=== PATIENT | male | born 1990 ===

== ENCOUNTER 2018-06-09 07:43 | Observation (INO) | payer OTHER ==
[2018-06-09] MEDS ORDERED: Racepinephrine 2.25% Inhal Soln 0.5 ML UD INH ONE (08:30)
[2018-06-09] MEDS ORDERED: Sodium Chloride 0.9% 1,000 ML IV ONE (08:31)
[2018-06-09] MEDS ORDERED: Clindamycin 600mg/50ml D5W 600 MG/50 ML VIAL IVPB STA (08:32)
--- NOTE | 2018-06-09 08:39 | C.PDOC ---
History Of Present Illness Patient presents to ED c/o throat pain and swelling x 4 days, muffled voice for the past 3 days. He states he has not been able to eat or drink for the pats 3 days, and has some SOB. Patient denies chest pain, palpitations, falls/ injuries. Time Seen by Provider: 06/09/18 08:22 Chief Complaint (Nursing): ENT Problem History Per: Patient History/Exam Limitations: clinical condition Onset/Duration Of Symptoms: Days (4) Current Symptoms Are (Timing): Still Present Severity: Severe Past Medical History Reviewed: Historical Data, Nursing Documentation, Vital Signs Vital Signs: Last Vital Signs Temp 100 F H 06/09/18 08:17 Pulse 106 H 06/09/18 08:17 Resp 18 06/09/18 08:17 BP 141/88 06/09/18 08:17 Pulse Ox 97 06/09/18 08:17 - Medical History PMH: No Chronic Diseases Surgical History: No Surg Hx Family History: States: No Known Family Hx - Social History Hx Alcohol Use: No Hx Substance Use: No - Immunization History Hx Tetanus Toxoid Vaccination: No Hx Influenza Vaccination: No Hx Pneumococcal Vaccination: No Review Of Systems Constitutional: Positive for: Fever ENT: Positive for: Throat Pain, Throat Swelling. Negative for: Nose Congestion Cardiovascular: Negative for: Chest Pain, Palpitations Respiratory: Positive for: Shortness of Breath. Negative for: Cough Gastrointestinal: Negative for: Nausea, Vomiting, Abdominal Pain, Diarrhea Skin: Negative for: Rash Physical Exam - Physical Exam Appears: Non-toxic, In Acute Distress (in moderate distress, (+) muffled voice) Eye(s): bilateral: Normal Inspection Nose: Normal Oral Mucosa: Moist Tongue: Normal Appearing, No Swelling Lips: Normal Appearing, No Swelling Throat: Erythema, No Exudate, No Drooling, Other (right sided peritonsillar abscess, uvula swollen and deviated to left, (+) mild trismus) Neck: Supple Cardiovascular: Rhythm Regular (tachycardic ) Respiratory: Normal Breath Sounds, No Rales, No Rhonchi, No Wheezing Gastrointestinal/Abdominal: Normal Exam, Bowel Sounds, Soft, No Tenderness Neurological/Psych: Oriented x3 ED Course And Treatment - Laboratory Results Result Diagrams: 06/09/18 08:30 06/09/18 08:30 O2 Sat by Pulse Oximetry: 97 (RA) Pulse Ox Interpretation: Normal Progress Note: Blood work, EKG, Xrays of chest, soft tissue neck ordered and reviewed. Patient given IV NS bolus, IV solumedrol, racemic epi nebulizer. 8:30am- Spoke with ENT Dr. Valadez, aware of patient with ride sided peritonsillar abscess and uvual swelling. Recommends steroids, IV clindamycin, will I&D patient in OR. 9:30am- Patient states he feels the same, no improvement. On exam, (+) swollen uvula and right sided peritonsillar swelling, (+) erthema and exudated. Patient s/p IV Solumedrol, IV Clindamycin, and racemic epi, no drooling or dyspnea. Will discuss with anesthesia for possible fiberoptic eval/visualization. 10:00am - Direct visualization of epiglottis and cords done by me using fiberoptic bronchoscope - epilottis normal appear and cords normal appearing. 10:10am - Dr. Valadez paged again, pending call back. 10:15AM- Dr. Valadez on his way to ER, will see patient. 10:45AM - Dr. Valadez in ED, plans to I&D abscess in ER. However patient has significant uvular swelling, will need admission/observation. Disposition - Disposition Forms: [employer] ([place])
[2018-06-09] MEDS ORDERED: Clindamycin 600mg/50ml NS 600 MG/50 ML BAG IVPB ONE (08:41)
[2018-06-09] MEDS ORDERED: Racepinephrine 2.25% Inhal Soln 0.5 ML UD ONE (08:41)
[2018-06-09] MEDS ORDERED: Sodium Chloride 0.9% 1,000 ML ONE (08:42)
[2018-06-09 09:02] LABS: BASO # 0.1 K/uL (0.0-0.2); BASO % 0.5 % (0.0-2.0); EOS # 0.2 K/uL (0.0-0.7); EOS % 1.6 % (0.0-4.0); HEMOGLOBIN 15.9 g/dL (12.0-18.0); LYMPH # 1.1 K/uL (1.0-4.3); LYMPH % 8.1 % (20.0-40.0); MEAN CELL VOLUME 91.9 fL (80.0-94.0); MEAN CORPUSCULAR HEMOGLOBIN 30.6 pg (27.0-31.0); MEAN CORPUSCULAR HGB CONC 33.4 g/dL (33.0-37.0); MEAN PLATELET VOLUME 7.8 fL (7.2-11.7); MONO # 1.1 K/uL (0.0-0.8); NEUT # 10.8 K/uL (1.8-7.0); NEUT % 81.8 % (50.0-75.0); PLATELET COUNT 309 K/uL (130-400); RED CELL DISTRIBUTION WIDTH 13.5 % (11.5-14.5); WHITE BLOOD COUNT 13.3 K/uL (4.8-10.8)
[2018-06-09 09:10] LABS: INR 1.2; PROTHROMBIN TIME 13.4 SECONDS (9.7-12.2)
[2018-06-09 09:14] LABS: ALB/GLOB RATIO 1.4 (1.0-2.1); ALBUMIN 4.8 g/dL (3.5-5.0); ALT/SGPT 28 U/L (21-72); AST/SGOT 16 U/L (17-59); CALCIUM 9.2 mg/dl (8.6-10.4); GFR NON-AFRICAN AMERICAN > 60
[2018-06-09 09:16] LABS: BLOOD UREA NITROGEN 10 mg/dL (9-20)
[2018-06-09] MEDS ORDERED: Iodixanol 320 MG/ML 100 ML BOTTLE IV ONE (09:29)
[2018-06-09 09:45] LABS: VENOUS BLOOD GAS PCO2 40 mmHg (40-60); VENOUS BLOOD GAS PO2 32 mm/Hg (30-55); VENOUS BLOOD PH 7.37 (7.32-7.43)
[2018-06-09 09:51] LABS: BANDS 3 % (0-2); EOSINOPHIL 2 % (0-4); LYMPHOCYTE 7 % (20-40); MONOCYTE 12 % (0-10); NEUTROPHIL 75 % (50-75); PLATELET ESTIMATE NORMAL (NORMAL); REACTIVE LYMPHOCYTES 1 % (0-0); TOTAL CELLS COUNTED 100
[2018-06-09] MEDS ORDERED: Lidocaine 4% (Laryng-O-Jet) Kit MM ONE ×2 (09:52→10:15)
--- NOTE | 2018-06-09 11:33 | RAD ---
HISTORY: SOB COMPARISON: None available TECHNIQUE: Chest, one view. FINDINGS: LUNGS: Mild patchy bilateral upper lobe atelectasis or infiltrates. Please note that chest x-ray has limited sensitivity for the detection of pulmonary masses. PLEURA: No significant pleural effusion identified. No definite pneumothorax . CARDIOVASCULAR: Heart size appears within normal limits. No significant atherosclerotic calcification present. OSSEOUS STRUCTURES: No acute osseous abnormality identified. VISUALIZED UPPER ABDOMEN: Unremarkable. OTHER FINDINGS: None. IMPRESSION: Mild patchy bilateral upper lobe atelectasis or infiltrate. Correlate clinically.
--- NOTE | 2018-06-09 12:16 | RAD ---
Date of service: 06/09/2018 PROCEDURE: Soft tissue neck HISTORY: THROAT SWELLING COMPARISON: None TECHNIQUE: Standard protocol for this study/examination. FINDINGS: No visualized radiopaque foreign body. No visible soft tissue swelling. IMPRESSION: Negative study
--- NOTE | 2018-06-09 13:38 | CP.PCM.HP ---
History of Present Illness - History of Present Illness History of Present Illness: PGY-1 Medicine Progress Note for Dr. Carvalho's service CC: throat pain HPI: Patient is a 27 yo male w/ no significant PMH admitted to hospital for evaluation of throat pain. Patient states the pain started four days ago and progressively worsened although patient states ibuprofen offered slight relief. Patient states he was unable to eat/drink due to the pain. Described as a sore throat with sharp pain, nonradiating, 10/10 at its worst. Pain was worsening daily so patient decided to come to hospital. Denies sick contacts and sexual activity. Patient states he had some relief after bedside I&D with Dr. Valadez. Admits to fevers, chills, sore throat, pain with eating, muffled void. Denies chest pain, sob, n/v, constipation or diarrhea, and dysuria. PMH- Denies PSH- Denies FH- Denies Allergies- NKDA Meds- Denies Social- Denies Code- Full Code PMD- Denies Present on Admission - Present on Admission Any Indicators Present on Admission: No Review of Systems - Review of Systems Review of Systems: 12 point ROS obtained and noted as in HPI Past Patient History - Past Social History Smoking Status: Never Smoked - PSYCHIATRIC Hx Substance Use: No - SURGICAL HISTORY Hx Surgeries: No - ANESTHESIA Hx Anesthesia: No Meds Allergies/Adverse Reactions: Allergies Allergy/AdvReac Type Severity Reaction Status Date / Time No Known Allergies Allergy Unverified 06/09/18 08:20 Physical Exam - Constitutional Appears: Non-toxic, No Acute Distress - Head Exam Head Exam: NORMAL INSPECTION, NORMOCEPHALIC - Eye Exam Eye Exam: EOMI, Normal appearance. absent: Nystagmus, Scleral icterus - ENT Exam ENT Exam: Mucous Membranes Moist Additional comments: s/p I&D for peritonsillar abscess on right side noted blood in suction drain tonsillar swelling noted, decreased from initial - Respiratory Exam Respiratory Exam: Clear to Auscultation Bilateral, NORMAL BREATHING PATTERN. absent: Rales, Rhonchi, Wheezes - Cardiovascular Exam Cardiovascular Exam: REGULAR RHYTHM, +S1, +S2. absent: Tachycardia - GI/Abdominal Exam GI & Abdominal Exam: Normal Bowel Sounds, Soft. absent: Diminished Bowel Sounds, Distended, Firm, Guarding - Extremities Exam Extremities exam: Positive for: normal inspection. Negative for: calf tenderness, pedal edema - Neurological Exam Neurological exam: Alert, CN II-XII Intact, Oriented x3 - Psychiatric Exam Psychiatric exam: Normal Affect, Normal Mood - Skin Skin Exam: Dry, Intact, Normal Color Results - Vital Signs Recent Vital Signs: Last Vital Signs Temp 100 F H 06/09/18 08:17 Pulse 106 H 06/09/18 08:17 Resp 18 06/09/18 08:17 BP 141/88 06/09/18 08:17 Pulse Ox 97 06/09/18 10:48 - Labs Result Diagrams: 06/09/18 08:30 06/09/18 08:30 Labs: Laboratory Results - last 24 hr 06/09/18 06/09/18 06/09/18 08:30 08:30 08:30 WBC 13.3 H RBC 5.20 Hgb 15.9 Hct 47.8 MCV 91.9 MCH 30.6 MCHC 33.4 RDW 13.5 Plt Count 309 MPV 7.8 Neut % (Auto) 81.8 H Lymph % (Auto) 8.1 L Edgar % (Auto) 8.0 Eos % (Auto) 1.6 Baso % (Auto) 0.5 Neut # (Auto) 10.8 H Lymph # (Auto) 1.1 Edgar # (Auto) 1.1 H Eos # (Auto) 0.2 Baso # (Auto) 0.1 Neutrophils % (Manual) 75 Band Neutrophils % 3 H Lymphocytes % (Manual) 7 L Reactive Lymphs % 1 H Monocytes % (Manual) 12 H Eosinophils % (Manual) 2 Platelet Estimate Normal PT 13.4 H INR 1.2 APTT 34 pO2 VBG pH VBG pCO2 VBG HCO3 VBG Total CO2 VBG O2 Sat (Calc) VBG Base Excess VBG Potassium Glucose Lactate Sodium 139 Potassium 3.8 Chloride 99 Carbon Dioxide 27 Anion Gap 17 BUN 10 Creatinine 0.8 Est GFR ( Amer) > 60 Est GFR (Non-Af Amer) > 60 POC Glucose (mg/dL) Random Glucose 98 Calcium 9.2 Total Bilirubin 1.6 H AST 16 L ALT 28 Alkaline Phosphatase 120 Total Protein 8.2 Albumin 4.8 Globulin 3.4 Albumin/Globulin Ratio 1.4 Venous Blood Potassium Blood Type Antibody Screen 06/09/18 06/09/18 06/09/18 09:19 09:42 10:10 WBC RBC Hgb Hct MCV MCH MCHC RDW Plt Count MPV Neut % (Auto) Lymph % (Auto) Edgar % (Auto) Eos % (Auto) Baso % (Auto) Neut # (Auto) Lymph # (Auto) Edgar # (Auto) Eos # (Auto) Baso # (Auto) Neutrophils % (Manual) Band Neutrophils % Lymphocytes % (Manual) Reactive Lymphs % Monocytes % (Manual) Eosinophils % (Manual) Platelet Estimate PT INR APTT pO2 32 VBG pH 7.37 VBG pCO2 40 VBG HCO3 22.3 VBG Total CO2 24.3 VBG O2 Sat (Calc) 70.3 H VBG Base Excess -2.0 L VBG Potassium 3.2 L Glucose 87 Lactate 0.8 Sodium 139.0 Potassium Chloride 107.0 Carbon Dioxide Anion Gap BUN Creatinine Est GFR ( Amer) Est GFR (Non-Af Amer) POC Glucose (mg/dL) 90 Random Glucose Calcium Total Bilirubin AST ALT Alkaline Phosphatase Total Protein Albumin Globulin Albumin/Globulin Ratio Venous Blood Potassium 3.2 L Blood Type O POSITIVE Antibody Screen Negative Assessment & Plan - Assessment and Plan (Free Text) Assessment: Patient is a 27 yo male w/ no significant PMH admitted to hospital for evaluation of peritonsilar abscess. ENT was consulted who did I&D at bedside. Pa edgarnt was continued on IV clindamycin. Further management as per ENT. Peritonsillar Abscess ENT consulted: Dr. Valadez- s/p bedside I&D; further interventional management as per ENT Soft Tissue Neck Xray- negative study (06/09) Tylenol PRN for fevers IV clindamycin 300 q6 Bcx pending DVT ppx: scds b/l GI ppx: protonix 40mg po Disposition: pending ENT update for possible d/c with oral abx PGY-1 [facility] d/w Dr. Carvalho
[2018-06-09] MEDS: Clindamycin 300 MG in Sodium Chloride 0.9% 50 ML IVPB SCH (19:40)
--- NOTE | 2018-06-09 22:54 | OP ---
PROCEDURE DATE: 06/08/2018 PREOPERATIVE DIAGNOSIS: Right peritonsillar abscess. POSTOPERATIVE DIAGNOSIS: Right peritonsillar abscess. PROCEDURE: Incision and drainage of right peritonsillar abscess. SURGEON: Fercho Valadez MD SIGNIFICANT FINDINGS: Right peritonsillar abscess. DESCRIPTION OF PROCEDURE: The patient was placed in a seated position. The right peritonsillar area was injected with lidocaine with epinephrine. An incision was made in the right peritonsillar area. Pus was noted coming out. Clamp was used to break up any possible loculations. Bleeding was controlled with time. The patient tolerated the procedure well. Fercho Valadez MD
[2018-06-09] MEDS: Pantoprazole 40 mg EC Tab PO SCH (22:55)
[2018-06-10 05:31] VITALS: BP 109/72; RESP 9; TEMP 97.5; O2SAT 99
[2018-06-10] MEDS: Clindamycin 300 MG in Sodium Chloride 0.9% 50 ML IVPB SCH ×2 (07:09→11:43)
[2018-06-10 08:56] LABS: BASO # 0.1 K/uL (0.0-0.2); BASO % 0.9 % (0.0-2.0); EOS # 0.2 K/uL (0.0-0.7); EOS % 1.6 % (0.0-4.0); HEMOGLOBIN 14.6 g/dL (12.0-18.0); LYMPH # 2.6 K/uL (1.0-4.3); LYMPH % 19.5 % (20.0-40.0); MEAN CORPUSCULAR HGB CONC 33.7 g/dL (33.0-37.0); MEAN PLATELET VOLUME 7.5 fL (7.2-11.7); MONO # 1.1 K/uL (0.0-0.8); MONO % 8.6 % (0.0-10.0); NEUT # 9.1 K/uL (1.8-7.0); NEUT % 69.4 % (50.0-75.0); RBC 4.72 Mil/uL (4.40-5.90); RED CELL DISTRIBUTION WIDTH 13.4 % (11.5-14.5); WHITE BLOOD COUNT 13.2 K/uL (4.8-10.8)
[2018-06-10 09:29] LABS: ALB/GLOB RATIO 1.3 (1.0-2.1); ALBUMIN 3.9 g/dL (3.5-5.0); ALT/SGPT 23 U/L (21-72); AST/SGOT 16 U/L (17-59); BLOOD UREA NITROGEN 18 mg/dL (9-20); CALCIUM 8.6 mg/dl (8.6-10.4); GFR NON-AFRICAN AMERICAN > 60
[2018-06-10] MEDS: Pantoprazole 40 mg EC Tab PO SCH (10:11)
[2018-06-10 11:15] VITALS: PULSE 91
--- NOTE | 2018-06-10 11:49 | CP.PCM.DIS ---
Provider - Provider Date of Admission: 06/09/18 11:40 Attending physician: Claudette Nguyen MD Consults: 06/09/18 08:33 Physician Consult Stat Comment: PERITONSILLAR ABSCESS Consulting Provider: Fercho Valadez Consulting Physician: Fercho Valadez Reason for Consult: ENT Time Spent in preparation of Discharge (in minutes): 45 Diagnosis - Discharge Diagnosis (1) Peritonsillar abscess Status: Acute Hospital Course - Lab Results Lab Results: Micro Results 06/09/18 09:00 Blood Blood Culture - Preliminary NO GROWTH AFTER 24 HOURS 06/09/18 08:30 Blood Blood Culture - Preliminary NO GROWTH AFTER 24 HOURS Most Recent Lab Values WBC 13.2 K/uL (4.8-10.8) H 06/10/18 08:53 RBC 4.72 Mil/uL (4.40-5.90) 06/10/18 08:53 Hgb 14.6 g/dL (12.0-18.0) 06/10/18 08:53 Hct 43.4 % (35.0-51.0) 06/10/18 08:53 MCV 92.0 fL (80.0-94.0) 06/10/18 08:53 MCH 31.0 pg (27.0-31.0) 06/10/18 08:53 MCHC 33.7 g/dL (33.0-37.0) 06/10/18 08:53 RDW 13.4 % (11.5-14.5) 06/10/18 08:53 Plt Count 297 K/uL (130-400) 06/10/18 08:53 MPV 7.5 fL (7.2-11.7) 06/10/18 08:53 Neut % (Auto) 69.4 % (50.0-75.0) 06/10/18 08:53 Lymph % (Auto) 19.5 % (20.0-40.0) L 06/10/18 08:53 [place] % (Auto) 8.6 % (0.0-10.0) 06/10/18 08:53 Eos % (Auto) 1.6 % (0.0-4.0) 06/10/18 08:53 Baso % (Auto) 0.9 % (0.0-2.0) 06/10/18 08:53 Neut # (Auto) 9.1 K/uL (1.8-7.0) H 06/10/18 08:53 Lymph # (Auto) 2.6 K/uL (1.0-4.3) 06/10/18 08:53 [place] # (Auto) 1.1 K/uL (0.0-0.8) H 06/10/18 08:53 Eos # (Auto) 0.2 K/uL (0.0-0.7) 06/10/18 08:53 Baso # (Auto) 0.1 K/uL (0.0-0.2) 06/10/18 08:53 Neutrophils % (Manual) 75 % (50-75) 06/09/18 08:30 Band Neutrophils % 3 % (0-2) H 06/09/18 08:30 Lymphocytes % (Manual) 7 % (20-40) L 06/09/18 08:30 Reactive Lymphs % 1 % (0-0) H 06/09/18 08:30 Monocytes % (Manual) 12 % (0-10) H 06/09/18 08:30 Eosinophils % (Manual) 2 % (0-4) 06/09/18 08:30 Platelet Estimate Normal (NORMAL) 06/09/18 08:30 PT 13.4 SECONDS (9.7-12.2) H 06/09/18 08:30 INR 1.2 06/09/18 08:30 APTT 34 SECONDS (21-34) 06/09/18 08:30 pO2 32 mm/Hg (30-55) 06/09/18 09:42 VBG pH 7.37 (7.32-7.43) 06/09/18 09:42 VBG pCO2 40 mmHg (40-60) 06/09/18 09:42 VBG HCO3 22.3 mmol/L 06/09/18 09:42 VBG Total CO2 24.3 mmol/L (22-28) 06/09/18 09:42 VBG O2 Sat (Calc) 70.3 % (40-65) H 06/09/18 09:42 VBG Base Excess -2.0 mmol/L (0.0-2.0) L 06/09/18 09:42 VBG Potassium 3.2 mmol/L (3.6-5.2) L 06/09/18 09:42 Sodium 139.0 mmol/l (132-148) 06/09/18 09:42 Chloride 107.0 mmol/L (98-107) 06/09/18 09:42 Glucose 87 mg/dl (75-110) 06/09/18 09:42 Lactate 0.8 mmol/L (0.7-2.1) 06/09/18 09:42 Sodium 137 mmol/L (132-148) 06/10/18 08:53 Potassium 4.0 mmol/L (3.6-5.2) 06/10/18 08:53 Chloride 102 mmol/L (98-107) 06/10/18 08:53 Carbon Dioxide 25 mmol/L (22-30) 06/10/18 08:53 Anion Gap 13 (10-20) 06/10/18 08:53 BUN 18 mg/dL (9-20) 06/10/18 08:53 Creatinine 0.6 mg/dL (0.8-1.5) L 06/10/18 08:53 Est GFR ( Amer) > 60 06/10/18 08:53 Est GFR (Non-Af Amer) > 60 06/10/18 08:53 POC Glucose (mg/dL) 90 mg/dL (65-110) 06/09/18 09:19 Random Glucose 103 mg/dL (75-110) 06/10/18 08:53 Calcium 8.6 mg/dl (8.6-10.4) 06/10/18 08:53 Total Bilirubin 1.2 mg/dL (0.2-1.3) 06/10/18 08:53 AST 16 U/L (17-59) L 06/10/18 08:53 ALT 23 U/L (21-72) 06/10/18 08:53 Alkaline Phosphatase 93 U/L (38-126) 06/10/18 08:53 Total Protein 6.9 g/dL (6.3-8.3) 06/10/18 08:53 Albumin 3.9 g/dL (3.5-5.0) 06/10/18 08:53 Globulin 2.9 gm/dL (2.2-3.9) 06/10/18 08:53 Albumin/Globulin Ratio 1.3 (1.0-2.1) 06/10/18 08:53 Venous Blood Potassium 3.2 mmol/L (3.6-5.2) L 06/09/18 09:42 Blood Type O POSITIVE 06/09/18 10:10 Antibody Screen Negative 06/09/18 10:10 - Hospital Course Hospital Course: Upon Admission Patient is a 27 yo male w/ no significant PMH admitted to hospital for evaluation of throat pain. Patient states the pain started four days ago and progressively worsened although patient states ibuprofen offered slight relief. Patient states he was unable to eat/drink due to the pain. Described as a sore throat with sharp pain, nonradiating, 10/10 at its worst. Pain was worsening daily so patient decided to come to hospital. Denies sick contacts and sexual activity. Patient states he had some relief after bedside I&D with Dr. Valadez. Admits to fevers, chills, sore throat, pain with eating, muffled void. Denies chest pain, sob, n/v, constipation or diarrhea, and dysuria. Hospital Course Patient is a 27 yo male admitted to hospital for peritonsillar abscess. ENT, Dr. Valadez, did bedside I&D. Patient was observed overnight and discharged after 24 hours with no fevers. Able to tolerate oral intake. D/C with oral clindamycin for 10 days. Discharge Plan 1. Patient is stable for discharge to home as per Dr. Carvalho 2. Patient will need to follow up with [facility] within 7 days of discharge from hospital. 3. Patient will be discharged with clindamycin for next 10 days to be taken three times a day (start 06/11 - 06/20/18) 4. Patient should return to hospital if symptoms worsen or recur. 5. Patient understands the plan as above and agrees. Discharge Exam - Head Exam Head Exam: NORMAL INSPECTION, NORMOCEPHALIC - Eye Exam Eye Exam: EOMI, Normal appearance. absent: Nystagmus, Scleral icterus - ENT Exam Additional comments: reduced tonsillar swelling clean well healing incision with no noted oozing, drainage, or exudate - Respiratory Exam Respiratory Exam: Clear to PA & Lateral, NORMAL BREATHING PATTERN. absent: Rales, Rhonchi, Wheezes, Respiratory Distress - Cardiovascular Exam Cardiovascular Exam: REGULAR RHYTHM, +S1, +S2. absent: Tachycardia - GI/Abdominal Exam GI & Abdominal Exam: Normal Bowel Sounds, Soft. absent: Diminished Bowel Sounds, Distended, Firm, Guarding - Extremities Exam Extremities exam: normal inspection - Neurological Exam Neurological exam: Alert, Oriented x3 - Psychiatric Exam Psychiatric exam: Normal Affect, Normal Mood - Skin Skin Exam: Dry, Intact, Normal Color Discharge Plan - Discharge Medications Prescriptions: Clindamycin [Cleocin] 300 mg PO Q8H #30 cap - Follow Up Plan Condition: GOOD Disposition: HOME/ ROUTINE Additional Instructions: 1. Patient is stable for discharge to home as per Dr. Carvalho 2. Patient will need to follow up with [facility] within 7 days of discharge from hospital. 3. Patient will be discharged with clindamycin for next 10 days to be taken three times a day (start 06/11 - 06/20/18) 4. Patient should return to hospital if symptoms worsen or recur. 5. Patient understands the plan as above and agrees. Referrals: [facility] [Outside]
[2018-06-10] MEDS ORDERED: Influenza Vaccine 60 mcg/0.5 mL SYR (4YR UP) IM ONE (14:00)
--- NOTE | 2018-06-10 20:39 | CARD ---
APPROVED REPORT Date of service: 06/09/2018 EKG Measurement Heart [id number] <Conclusion> Sinus tachycardia Incomplete right bundle branch block Borderline ECG
== END 2018-06-10 13:37 | disposition home or self-care (01) ==
LOC: C.ER 07:43 → C.9E 11:40 → C.5S 06-10 06:26 → C.9E 06-10 06:34 → C.5S 06-10 13:00 → C.9E 06-10 13:05
PROVIDERS: ADMIT Internal Medicine; ATTEND Internal Medicine
DX: J36 Peritonsillar abscess (principal)
CPT/HCPCS: 42700; 70360; 71045; 80053; 82803; 82948; 85025; 85610; 85730; 86850; 86900; 87040; 93005; 96360; 96365; 96374; G0378; J2930; J7030